=== PATIENT | female | born 1990 | race Caucasian/White ===

== ENCOUNTER 2016-09-25 19:45 | Emergency (ER) | payer OTHER ==
[~2016-09-25] VITALS: Ht 170.2 cm; Wt 66.4 kg
[2016-09-25] MEDS ORDERED: XANA2TAB2 PO (20:06)
[2016-09-25] MEDS ORDERED: METH5TAB PO (20:06)
[2016-09-25 20:07] VITALS: BP 119/77; PULSE 93; RESP 16; TEMP 98.4; O2SAT 98
[2016-09-25 22:23] LABS: AUTOMATED NEUTROPHIL # 6.1 TH/MM3 (1.8-7.7); BASOPHIL % 0.3 % (0.0-2.0); EOSINOPHIL # 0.1 TH/MM3 (0-0.4); EOSINOPHIL % 0.9 % (0.0-4.0); HEMATOCRIT 38.3 % (35.0-46.0); HEMO FLAGS DIFF FINAL; LYMPH % 28.3 % (9.0-44.0); LYMPHOCYTE # 2.8 TH/MM3 (1.0-4.8); MEAN CELL VOLUME 88.6 FL (80.0-100.0); MEAN CORPUSCULAR HEMOGLOBIN 30.3 PG (27.0-34.0); MEAN CORPUSCULAR HGB CONC 34.2 % (32.0-36.0); MONO % 9.7 % (0.0-8.0); NEUT % 60.8 % (16.0-70.0); PLATELET COUNT 208 TH/MM3 (150-450); RED BLOOD COUNT 4.32 MIL/MM3 (4.00-5.30); RED CELL DISTRIBUTION WIDTH 13.2 % (11.6-17.2)
[2016-09-25 22:41] LABS: ANION GAP 6 MEQ/L (5-15)
[2016-09-25 22:47] LABS: ALKALINE PHOSPHATASE 54 U/L (45-117); ALT (GPT) 88 U/L (10-53); AST (GOT) 59 U/L (15-37); BICARBONATE 30.7 MEQ/L (21.0-32.0); BLOOD UREA NITROGEN 10 MG/DL (7-18); CHLORIDE 103 MEQ/L (98-107); GLOMERULAR FILTRATION RATE 88 ML/MIN (>89); POTASSIUM 4.2 MEQ/L (3.5-5.1); SODIUM (NA) 140 MEQ/L (136-145); TOTAL BILIRUBIN ADULT 0.7 MG/DL (0.2-1.0)
[2016-09-25 22:48] LABS: ACETAMINOPHEN LESS THAN 2.0 MCG/ML (10.0-30.0)
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
[2016-09-26 00:50] VITALS: BP 118/75; PULSE 90; RESP 17; TEMP 98.7; O2SAT 98
[2016-09-26 05:15] LABS: AMPHETAMINE, URINE NEG (NEG); BARBITURATES, URINE NEG (NEG); COCAINE, URINE POS (NEG)
[2016-09-26 06:26] VITALS: BP 101/52; PULSE 65; RESP 18; O2SAT 99
[2016-09-26 09:07] VITALS: BP 101/52
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
== END 2016-09-26 09:32 | disposition home or self-care (01) ==
LOC: NEPA 19:45 → NEPJ 09-26 09:32
DX: F19.20 Other psychoactive substance dependence, uncomplicated (principal)
CPT/HCPCS: 80053; 80307; 80320; 80329; 84703; 85025; 99283; G0480

== ENCOUNTER 2017-11-16 19:09 | Emergency (ER) | payer SELFPAY ==
[~2017-11-16] VITALS: Ht 170.2 cm; Wt 59.1 kg
[~2017-11-16 19:09] MED LIST: METH5TAB PO; XANA2TAB2 PO
[2017-11-16 19:42] VITALS: BP 134/99; PULSE 98; RESP 18; TEMP 98.7; O2SAT 100
--- NOTE | 2017-11-16 19:58 | PD ---
HPI Chief Complaint: Medical Clearance Time Seen by Provider: 19:58 Travel History International Travel<30 days: No Contact w/Intl Traveler<30days: No Traveled to known affect area: No History of Present Illness HPI 27-year-old female came to the emergency room brought by the police after she was taken into police custody and was found to be lethargic. Patient claims to be doing heroin is IV drug abuse and was also found with Aliza in her possession. Currently patient is drowsy but wakes up and answers questions appropriately. She says that she does not do Aliza and only shoots heroin. She is covered with needle track nicole. Vital signs are stable. PFSH Past Medical History Narrative Medical List of her past medical, surgical, social and family history reviewed from the nursing note. Psychiatric: Yes (polysubstance abuse) ?: Unknown Social History Alcohol Use: Yes (once in awhile) Tobacco Use: Yes Substance Use: Yes Allergies-Medications (Allergen,Severity, Reaction): Coded Allergies: No Known Allergies (Unverified Adverse Reaction, Unknown, 11/16/17) Comments No known drug allergies. Reported Meds & Prescriptions Reported Meds & Active Scripts Active Reported Xanax (Alprazolam) 2 Mg Tab 2 Mg PO Q8H PRN Methadone (Methadone HCl) 5 Mg Tab 2.5 Mg PO DAILY Narrative Medication List of her home medications reviewed from the nursing note Review of Systems ROS Limitations: Altered Mental Status Except as stated in HPI: all other systems reviewed are Neg Physical Exam Exam Limitations: Altered Mental Status Narrative GENERAL: Drowsy but wakes up and answers questions appropriately, no obvious distress SKIN: Focused skin assessment warm/dry. Filled with needle track nicole on both upper extremities and neck HEAD: Atraumatic. Normocephalic. EYES: Pupils equal and round. No scleral icterus. No injection or drainage. ENT: No nasal bleeding or discharge. Mucous membranes pink and moist. NECK: Trachea midline. No JVD. CARDIOVASCULAR: Regular rate and rhythm. No murmur appreciated. RESPIRATORY: No accessory muscle use. Clear to auscultation. Breath sounds equal bilaterally. GASTROINTESTINAL: Abdomen soft, non-tender, nondistended. Hepatic and splenic margins not palpable. MUSCULOSKELETAL: No obvious deformities. No clubbing. No cyanosis. No edema. NEUROLOGICAL: Awake and alert. No obvious cranial nerve deficits. Motor grossly within normal limits. Normal speech. PSYCHIATRIC: Appropriate mood and affect; insight and judgment normal. Data Data Last Documented VS Orders Orders Complete Blood Count With Diff (11/16/17 19:58) Comprehensive Metabolic Panel (11/16/17 19:58) Electrocardiogram (11/16/17 19:58) Alcohol (Ethanol) (11/16/17 19:58) Ed Discharge Order (11/16/17 22:21) Labs Laboratory Tests Test 11/16/17 20:45 White Blood Count 10.2 TH/MM3 Red Blood Count 4.85 MIL/MM3 Hemoglobin 14.7 GM/DL Hematocrit 42.2 % Mean Corpuscular Volume 86.9 FL Mean Corpuscular Hemoglobin 30.3 PG Mean Corpuscular Hemoglobin Concent 34.9 % Red Cell Distribution Width 13.0 % Platelet Count 253 TH/MM3 Mean Platelet Volume 7.6 FL Neutrophils (%) (Auto) 68.3 % Lymphocytes (%) (Auto) 22.5 % Monocytes (%) (Auto) 7.0 % Eosinophils (%) (Auto) 1.6 % Basophils (%) (Auto) 0.6 % Neutrophils # (Auto) 7.0 TH/MM3 Lymphocytes # (Auto) 2.3 TH/MM3 Monocytes # (Auto) 0.7 TH/MM3 Eosinophils # (Auto) 0.2 TH/MM3 Basophils # (Auto) 0.1 TH/MM3 CBC Comment DIFF FINAL Differential Comment Blood Urea Nitrogen 10 MG/DL Creatinine 0.86 MG/DL Random Glucose 85 MG/DL Total Protein 8.6 GM/DL Albumin 3.5 GM/DL Calcium Level 8.4 MG/DL Alkaline Phosphatase 83 U/L Aspartate Amino Transf (AST/SGOT) 76 U/L Alanine Aminotransferase (ALT/SGPT) 99 U/L Total Bilirubin 0.5 MG/DL Sodium Level 138 MEQ/L Potassium Level 4.2 MEQ/L Chloride Level 104 MEQ/L Carbon Dioxide Level 26.7 MEQ/L Anion Gap 7 MEQ/L Estimat Glomerular Filtration Rate 78 ML/MIN Ethyl Alcohol Level LESS THAN 2 MG/DL [facility] Medical Decision Making Medical Screen Exam Complete: Yes Emergency Medical Condition: Yes Medical Record Reviewed: Yes Interpretation(s) Twelve-lead EKG was reviewed by me. Normal sinus rhythm, normal axis, nonspecific ST-T wave changes. Heart rate of 96 bpm. Differential Diagnosis IV drug abuse, heroin abuse Narrative Course 9:09 PM awaiting for the blood test result so that she can be medically cleared and go with the police captain back to the custody. 10:21 PM blood test results are back and liver function is slightly elevated which could be from the substance abuse. I am comfortable discharging her home at this point. Patient continues to be arousable. Procedures EKG Prior to Arrival: No Diagnosis Primary Impression: Substance abuse Additional Impression: IV drug abuse Referrals: Primary Care Physician Additional Instructions: IV drugs are extremely dangerous and could lead to life-threatening infections. Please try to check yourself and into a drug rehab program for instance [facility]. Disposition: 01 DISCHARGE HOME Condition: Stable Rachel Navarro MD Nov 16, 2017 19:58
[2017-11-16 21:32] LABS: BASOPHIL # 0.1 TH/MM3 (0-0.2); BASOPHIL % 0.6 % (0.0-2.0); EOSINOPHIL # 0.2 TH/MM3 (0-0.4); EOSINOPHIL % 1.6 % (0.0-4.0); HEMATOCRIT 42.2 % (35.0-46.0); HEMOGLOBIN 14.7 GM/DL (11.6-15.3); LYMPH % 22.5 % (9.0-44.0); LYMPHOCYTE # 2.3 TH/MM3 (1.0-4.8); MEAN CELL VOLUME 86.9 FL (80.0-100.0); MEAN CORPUSCULAR HEMOGLOBIN 30.3 PG (27.0-34.0); MEAN CORPUSCULAR HGB CONC 34.9 % (32.0-36.0); MEAN PLATELET VOLUME 7.6 FL (7.0-11.0); MONOCYTE # 0.7 TH/MM3 (0-0.9); NEUT % 68.3 % (16.0-70.0); PLATELET COUNT 253 TH/MM3 (150-450); RED BLOOD COUNT 4.85 MIL/MM3 (4.00-5.30); WHITE BLOOD COUNT 10.2 TH/MM3 (4.0-11.0)
[2017-11-16 21:57] LABS: ALT (GPT) 99 U/L (10-53)
[2017-11-16 21:58] LABS: ALBUMIN 3.5 GM/DL (3.4-5.0); ALKALINE PHOSPHATASE 83 U/L (45-117); AST (GOT) 76 U/L (15-37); BICARBONATE 26.7 MEQ/L (21.0-32.0); BLOOD UREA NITROGEN 10 MG/DL (7-18); CALCIUM 8.4 MG/DL (8.5-10.1); CHLORIDE 104 MEQ/L (98-107); CREATININE 0.86 MG/DL (0.50-1.00); GLOMERULAR FILTRATION RATE 78 ML/MIN (>89); GLUCOSE,RANDOM 85 MG/DL (74-106); SODIUM (NA) 138 MEQ/L (136-145); TOTAL BILIRUBIN ADULT 0.5 MG/DL (0.2-1.0); TOTAL PROTEIN 8.6 GM/DL (6.4-8.2)
--- NOTE | 2017-11-17 21:26 | EKG ---
Date Performed: 11/16/2017 Time Performed: 21:03:18 PTAGE: 27 years EKG: Sinus rhythm NORMAL ECG NO PREVIOUS TRACING DOCTOR: Isai Mantilla Interpretating Date/Time 11/17/2017 21:24:17
== END 2017-11-16 23:27 | disposition home or self-care (01) ==
LOC: NEPD 19:09
DX: F11.10 Opioid abuse, uncomplicated (principal); Z72.0 Tobacco use; Z79.899 Other long term (current) drug therapy
CPT/HCPCS: 80053; 80307; 85025; 93005; 99284